=== PATIENT | male | born 1950 | race Hispanic/Latino ===

== ENCOUNTER 2017-09-19 10:12 | Inpatient (IN) | payer MEDICARE, MEDICAID ==
[2016-12-09 21:31] VITALS: BMI 33.3
[2017-09-19] MEDS ORDERED: HEPARIN-NS 5,000 UNITS/500 ML 5,000 UNIT/500 ML BAG IV ONE (12:13)
[2017-09-19] MEDS ORDERED: Lidocaine 1% Inj (20ml) ONE (12:13)
[2017-09-19] MEDS ORDERED: Propofol 10 mg/ml Inj (20 ML) ONE ×2 (12:20→15:22)
[2017-09-19] MEDS ORDERED: Nitroglycerin 50mg in D5W 50 MG/250 ML BOTTLE IV ONE (14:52)
[2017-09-19] MEDS ORDERED: Midazolam 2 MG/2 ML VIAL ONE (15:12)
[2017-09-19] MEDS ORDERED: ceFAZolin IV 2 gm in Dextrose 2 GM/50 ML BAG IVPB ONE (15:35)
[2017-09-19] MEDS ORDERED: Protamine 50mg/5mL Inj IV ONE (17:49)
[2017-09-19] MEDS ORDERED: Lactated Ringer's 1,000 ML IV PRN (18:27)
[2017-09-19] MEDS ORDERED: Sodium Chloride 0.9% 500 ML IV SCH (18:30)
[2017-09-19] MEDS: HYDROmorphone 0.5 mg/0.5 ml ISec IVP PRN ×3 (18:46→20:20)
[2017-09-19] MEDS ORDERED: HYDROmorphone 0.5 mg/0.5 ml ISec ONE (18:47)
[2017-09-19] MEDS: Lactated Ringer's 1,000 ML IV SCH (21:30)
[2017-09-19] MEDS ORDERED: ceFAZolin IV 1 gm in Dextrose 1 GM/50 ML BAG IVPB SCH (23:40)
[2017-09-20] MEDS: Oxycodone/Acetaminophen 5/325 mg Tab PO PRN ×3 (01:20→20:49)
[2017-09-20] MEDS: ceFAZolin 1 GM in Sodium Chloride 0.9% 100 ML IVPB SCH ×2 (01:30→10:10)
[2017-09-20 06:22] LABS: BASO # 0.1 K/uL (0.0-0.2); BASO % 0.5 % (0.0-2.0); EOS % 0.2 % (0.0-4.0); LYMPH # 1.4 K/uL (1.0-4.3); LYMPH % 12.7 % (20.0-40.0); MEAN CELL VOLUME 87.9 fL (80.0-94.0); MEAN CORPUSCULAR HEMOGLOBIN 30.6 pg (27.0-31.0); MEAN CORPUSCULAR HGB CONC 34.8 g/dL (33.0-37.0); MEAN PLATELET VOLUME 10.1 fL (7.2-11.7); MONO % 9.2 % (0.0-10.0); NEUT # 8.8 K/uL (1.8-7.0); NEUT % 77.4 % (50.0-75.0); RBC 4.22 Mil/uL (4.40-5.90); RED CELL DISTRIBUTION WIDTH 13.1 % (11.5-14.5); WHITE BLOOD COUNT 11.3 K/uL (4.8-10.8)
--- NOTE | 2017-09-20 06:27 | OP ---
PROCEDURE DATE: 09/19/2017. PREOPERATIVE DIAGNOSIS: A 90% right carotid stenosis. POSTOPERATIVE DIAGNOSIS: A 90% right carotid stenosis. PROCEDURE: Right carotid endarterectomy. SURGEON: Eric Stevenson MD VOLLEYBALL COMMENTATOR: Lam Ash MD TYPE OF ANESTHESIA: General endotracheal. ESTIMATED BLOOD LOSS: 100 mL. POSTOPERATIVE CONDITION: Stable. INDICATIONS FOR SURGERY: This is A 67-year-old male who presents with a history of bilateral carotid stenosis. He has 90% stenosis on the right and 75% on the left. He will now undergo staged endarterectomy with today being more severe, right side being repaired. GROSS FINDINGS: The patient had a low carotid bifurcation, making the dissection somewhat less difficult. There was bleeding from the parotid gland during the case resulting in the removal of a portion of parotid gland to control the bleeding. There were also lymph nodes in the area of the carotid, which had to be removed in order to facilitate exposure. DESCRIPTION OF PROCEDURE: The patient was taken to the operating room, general anesthesia was administered, and the right neck was prepped and draped. A standard neck exposure incision was made along the anterior border of sternocleidomastoid muscle. Through careful dissection, the carotid artery was identified and looped with umbilical tape. Multiple venous and arterial branches were ligated between clamps using silk ties. A portion of the carotid gland was resected to control bleeding. There were also several lymph nodes. The area of the carotid was removed to facilitate exposure. Through careful dissection, the common carotid, external carotid, and internal carotid arteries were carefully dissected free and looped with either umbilical tape or a vessel loop. The inferior thyroid artery was looped with silk. Heparin was administered. Clamps were placed first on the internal carotid and then on the remaining vessels and the common carotid artery was opened using arteriotomy and passes on to the internal carotid. Proximally, the arteriotomy was made on to a nondiseased common carotid artery. A 2 mm [place] shunt was shot in first into the internal carotid and then into common carotid and it was placed successfully. Total clamp time was 4 minutes. Next, using the freer dissector, I dissected the carotid plaque. I dissected also the common carotid bulb into the internal carotid artery. Using Pott Scissors, a nice cut was made in the common carotid intima as a proximal endpoint. Distal endpoint was first removed using a freer dissector and then tacking sutures of 7-0 Prolene were paced. The common carotid bulb with an open internal carotid was flushed with copious amounts of saline solution and any remaining "floaters" were removed. After a good and clean and smooth intima left, a Hemashield patch was fashioned and sutured in place with a running 6-0 Prolene suture. The shunt was then removed and clamps were replaced and the suturing of the patch was finished within 1 to 2 minutes. The clamps were then released, first the external carotid, then the common and then after approximately 10 seconds the internal carotid. Couple of bleeders were controlled using 6-0 Prolene. There was some oozing left which was controlled with Surgicel. The neck wound was irrigated with copious amounts of saline solution. A tissue flap closure was performed with multiple layers of Monocryl, subcuticular Monocryl, skin clips and Steri-strips. A [place] drain was left near the carotid artery and brought out through an inferior stab wound. The patient tolerated the procedure well and returned to recovery room in stable condition. He then awoke neurologically intact. Eric Stevenson MD MTDNoe
[2017-09-20 06:38] LABS: HEMOGLOBIN 12.9 g/dL (12.0-18.0)
[2017-09-20 07:12] LABS: BLOOD UREA NITROGEN 27 mg/dL (9-20); GFR AFRICAN-AMERICAN > 60; GFR NON-AFRICAN AMERICAN > 60
[2017-09-20 07:13] LABS: ALB/GLOB RATIO 1.2 (1.0-2.1); ALBUMIN 3.2 g/dL (3.5-5.0); ALT/SGPT 26 U/L (21-72); AST/SGOT 19 U/L (17-59); CALCIUM 7.7 mg/dl (8.6-10.4)
[2017-09-20] MEDS ORDERED: niCARdipine IV 25 MG in Sodium Chloride 0.9% 240 ML IV SCH (09:00)
[2017-09-20] MEDS: Aspirin 325 mg EC Tablets PO SCH (10:44)
[2017-09-20] MEDS: Lactated Ringer's 1,000 ML IV SCH (10:46)
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
[2017-09-21] MEDS: Aspirin 325 mg EC Tablets PO SCH (09:59)
[2017-09-21 12:18] LABS: BASO % 0.2 % (0.0-2.0); EOS % 0.3 % (0.0-4.0); HEMOGLOBIN 13.3 g/dL (12.0-18.0); LYMPH # 0.9 K/uL (1.0-4.3); LYMPH % 8.6 % (20.0-40.0); MEAN CELL VOLUME 87.3 fL (80.0-94.0); MEAN CORPUSCULAR HEMOGLOBIN 30.4 pg (27.0-31.0); MEAN CORPUSCULAR HGB CONC 34.8 g/dL (33.0-37.0); MONO # 0.8 K/uL (0.0-0.8); NEUT # 8.7 K/uL (1.8-7.0); NEUT % 82.9 % (50.0-75.0); PLATELET COUNT 131 K/uL (130-400); RBC 4.38 Mil/uL (4.40-5.90); RED CELL DISTRIBUTION WIDTH 13.3 % (11.5-14.5); WHITE BLOOD COUNT 10.5 K/uL (4.8-10.8)
[2017-09-21 12:33] LABS: ALB/GLOB RATIO 1.2 (1.0-2.1); ALBUMIN 3.7 g/dL (3.5-5.0); ALT/SGPT 23 U/L (21-72); AST/SGOT 22 U/L (17-59); BLOOD UREA NITROGEN 26 mg/dL (9-20); CALCIUM 8.7 mg/dl (8.6-10.4); GFR AFRICAN-AMERICAN > 60; GFR NON-AFRICAN AMERICAN > 60
[2017-09-21 12:53] LABS: BANDS 1 % (0-2); EOSINOPHIL 1 % (0-4); LYMPHOCYTE 9 % (20-40); MONOCYTE 7 % (0-10); NEUTROPHIL 82 % (50-75); PLATELET ESTIMATE NORMAL (NORMAL); TOTAL CELLS COUNTED 100
[2017-09-21] MEDS: (Novolog) Insulin Aspart, Recombinant 100 u/ml 10 ml vial SC SCH ×2 (17:29→21:28)
[2017-09-21] MEDS: Oxycodone/Acetaminophen 5/325 mg Tab PO PRN (17:30)
[2017-09-21] MEDS ORDERED: Bisacodyl 5mg EC Tab PO ONE (21:17)
[2017-09-22] MEDS: (Novolog) Insulin Aspart, Recombinant 100 u/ml 10 ml vial SC SCH ×4 (07:29→22:14)
[2017-09-22 09:00] LABS: ABG ALLEN TEST PO; ARTERIAL BLOOD GAS HCO3 25.6 mmol/L (21-28); ARTERIAL BLOOD GAS HEMOGLOBIN 12.8 g/dL (11.7-17.4); ARTERIAL BLOOD GAS O2 SAT 96.6 % (95-98); ARTERIAL BLOOD GAS PCO2 32 mm/Hg (35-45); ARTERIAL BLOOD GAS PH 7.48 (7.35-7.45); ARTERIAL BLOOD GAS PO2 82 mm/Hg (80-100); ARTERIAL BLOOD GAS TCO2 24.8 mmol/L (22-28)
[2017-09-22 09:05] LABS: CK-MB 0.82 ng/mL (0.0-3.38); TROPONIN I 0.075 ng/mL (0.00-0.120)
[2017-09-22 09:14] LABS: HEMOGLOBIN 12.9 g/dL (12.0-18.0); MEAN CELL VOLUME 86.1 fL (80.0-94.0); MEAN CORPUSCULAR HEMOGLOBIN 30.8 pg (27.0-31.0); MEAN CORPUSCULAR HGB CONC 35.8 g/dL (33.0-37.0); MEAN PLATELET VOLUME 9.7 fL (7.2-11.7); RBC 4.2 Mil/uL (4.40-5.90); RED CELL DISTRIBUTION WIDTH 13.2 % (11.5-14.5); WHITE BLOOD COUNT 9.9 K/uL (4.8-10.8)
[2017-09-22 09:38] LABS: ALBUMIN 3.7 g/dL (3.5-5.0); ALT/SGPT 19 U/L (21-72); AST/SGOT 26 U/L (17-59); BLOOD UREA NITROGEN 17 mg/dL (9-20); CALCIUM 8.8 mg/dl (8.6-10.4); GFR AFRICAN-AMERICAN > 60; GFR NON-AFRICAN AMERICAN > 60
[2017-09-22] MEDS: POLYETHYLENE GLYCOL 3350 17 GM/Dose PACKET PO SCH (10:17)
[2017-09-22] MEDS: Aspirin 325 mg EC Tablets PO SCH (10:17)
[2017-09-22] MEDS ORDERED: Iodixanol 320 MG/ML 100 ML BOTTLE IV ONE (11:53)
--- NOTE | 2017-09-22 13:12 | CT ---
PROCEDURE: CT Chest with contrast (Pulmonary Angiogram) HISTORY: Hypoxia,tachy,r/o PE COMPARISON: None available. TECHNIQUE: Axial computed tomography images were obtained of the chest in the pulmonary arterial phase of enhancement. Coronal and sagittal reformatted images were created and reviewed. Intravenous contrast dose: 100 mL Visipaque 320 Radiation dose: Total exam DLP = 580.1 mGy-cm. This CT exam was performed using one or more of the following dose reduction techniques: Automated exposure control, adjustment of the mA and/or kV according to patient size, and/or use of iterative reconstruction technique. FINDINGS: PULMONARY ARTERIES: Suboptimal opacification. No central pulmonary embolism. AORTA: No acute findings. Heavy calcific atherosclerosis. No thoracic aortic aneurysm. LUNGS: Pulmonary vascular congestion/edema. No nodule, mass or pulmonary consolidation. PLEURAL SPACES: Small bilateral pleural effusions. No pneumothorax. HEART: Unremarkable. No cardiomegaly. No significant pericardial effusion. LYMPH NODES: Scattered enlarged lymph nodes. Preaortic node measuring 1.4 cm. Precarinal node measuring 1.3 cm. BONES, CHEST WALL: Old posterior 11th left rib fracture with partial nonunion. No destructive lesion OTHER FINDINGS: Prior cholecystectomy. Fatty atrophy of the pancreas. Large left renal cyst IMPRESSION: Limited CT pulmonary angiogram. No central pulmonary embolus. Pulmonary vascular congestion/edema with small bilateral pleural effusions. Nonspecific mediastinal lymphadenopathy with largest node measuring up to 1.4 cm.
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
[2017-09-22] MEDS: Albuterol-Ipratrop 3 mg / 0.5 (3 ml) UD INH SCH ×2 (15:45→20:47)
--- NOTE | 2017-09-22 19:02 | PN ---
DATE: 09/22/2017 SUBJECTIVE: The patient had a hypoxic event this morning where his O2 went down to low 80s on 2 L of oxygen. Respiratory was called, he had chest PT, and his oxygen was turned up and he improved to an O2 saturation of currently 98. Because of the acuity of the event, he underwent a CT angiogram of lungs that showed no evidence of pulmonary embolism. The lungs were noted to be diminished but no infiltrates were seen. There were only small pleural effusions. Patient is resting comfortably with a Ventimask currently. O2 saturation is 98 on 4 L of Ventimask. His right neck incision is clean and dry. Lung exam revealed decreased lung sounds at the bases, otherwise, clear. The abdomen is somewhat distended. Bowel sounds present. IMPRESSION: Patient has been constipated and has a distended abdomen, this may have contributed to his hypoxia. He is recently given a Dulcolax suppository for bowel movement, he states he feels better. There was no evidence of pneumonia on CT scan. He will be seen by Dr. Najera in Pulmonary, undergo daily respiratory treatments as his pulmonary status is the only thing keeping him in the hospital at this point. Once his pulmonary status improves and he has adequate O2 saturation on room air, he will be discharged. Eric Stevenson MD
[2017-09-23] MEDS: Albuterol-Ipratrop 3 mg / 0.5 (3 ml) UD INH SCH ×6 (00:30→19:44)
[2017-09-23 00:36] VITALS: RESP 20
[2017-09-23] MEDS: (Novolog) Insulin Aspart, Recombinant 100 u/ml 10 ml vial SC SCH ×4 (08:03→21:28)
[2017-09-23] MEDS: POLYETHYLENE GLYCOL 3350 17 GM/Dose PACKET PO SCH ×2 (10:00→10:09)
[2017-09-23] MEDS: Aspirin 325 mg EC Tablets PO SCH (10:01)
--- NOTE | 2017-09-23 10:59 | CP.PCM.PN ---
<Jake Wong E - Last Filed: 09/23/17 18:51> Subjective - Date & Time of Evaluation Date of Evaluation: 09/23/17 Time of Evaluation: 09:20 - Subjective Subjective: Medicine progress note ( Dr. Aldrich's service) Patient was seen and examined at bedside. Patient states that he is doing well and has no complaints. Patient states that he is breathing better and he was able to sleep well with the CiPAP machine overnight. Patient denies chest pain, SOB, palpitations, nausea, vomiting, fever, chills, headache, blurry vision, and dizziness. Objective - Vital Signs/Intake and Output Vital Signs (last 24 hours): Temp Pulse Resp BP Pulse Ox 97.4 F L 60 20 160/72 H 93 L 09/23/17 07:35 09/23/17 07:54 09/23/17 07:35 09/23/17 10:00 09/23/17 07:35 - Medications Medications: Current Medications Albuterol/Ipratropium (Duoneb 3 Mg/0.5 Mg (3 Ml) Ud) 3 ml INH RQ4 [facility] Last Admin: 09/23/17 07:12 Dose: 3 ml Amlodipine Besylate (Norvasc) 10 mg PO DAILY [facility] Last Admin: 09/23/17 10:01 Dose: 10 mg Aspirin (Ecotrin) 325 mg PO DAILY [facility] Last Admin: 09/23/17 10:01 Dose: 325 mg Docusate Sodium (Colace) 100 mg PO BID [facility] Last Admin: 09/23/17 10:01 Dose: 100 mg Famotidine (Pepcid) 20 mg PO DAILY [facility] Last Admin: 09/23/17 10:01 Dose: 20 mg Furosemide (Lasix) 40 mg IVP DAILY [facility] Last Admin: 09/23/17 10:00 Dose: 40 mg Hydralazine HCl (Apresoline) 10 mg PO QID [facility] Last Admin: 09/22/17 22:05 Dose: 10 mg Hydromorphone HCl (Dilaudid) 1 mg IVP Q4H PRN PRN Reason: pain 8-10 Nicardipine HCl 25 mg/ Sodium (Chloride) 250 mls @ 50 mls/hr IV .Q5H [facility]; 5 MG/ HR PRN Reason: Protocol Last Admin: 09/20/17 15:02 Dose: Not Given Insulin Aspart (Novolog) 0 unit SC ACHS [facility] PRN Reason: Protocol Last Admin: 09/23/17 08:03 Dose: Not Given Losartan Potassium (Cozaar) 100 mg PO DAILY [facility] Last Admin: 09/23/17 10:01 Dose: 100 mg Metoprolol Tartrate (Lopressor) 50 mg PO DAILY [facility] Last Admin: 09/23/17 10:01 Dose: 50 mg Polyethylene Glycol (Miralax) 17 gm PO DAILY [facility] Last Admin: 09/23/17 10:09 Dose: Not Given - Labs Labs: 09/22/17 09:08 09/22/17 09:08 - Constitutional Appears: Well, No Acute Distress - Head Exam Head Exam: ATRAUMATIC, NORMAL INSPECTION Additional comments: S/p right carotid endarterectomy on 09/19/17, POD #4, Still with dressing - Eye Exam Eye Exam: EOMI, Normal appearance - ENT Exam ENT Exam: Mucous Membranes Moist - Respiratory Exam Respiratory Exam: Clear to Ausculation Bilateral, NORMAL BREATHING PATTERN. absent: Rhonchi, Wheezes, Respiratory Distress - Cardiovascular Exam Cardiovascular Exam: REGULAR RHYTHM, +S1, +S2 - GI/Abdominal Exam GI & Abdominal Exam: Soft, Normal Bowel Sounds. absent: Guarding, Rigid, Tenderness - Extremities Exam Extremities Exam: Normal Inspection. absent: Calf Tenderness, Pedal Edema - Neurological Exam Neurological Exam: Alert, Awake, Oriented x3 - Psychiatric Exam Psychiatric exam: Normal Affect - Skin Skin Exam: Normal Color Assessment and Plan (1) Status post carotid endarterectomy Assessment & Plan: Dr. Stevenson on board Right artery endarterectomy POD #4 * Management as per Dr. Stevenson's recommendation Status: Acute (2) Atrial fibrillation Assessment & Plan: Visual And Stock Associate, Dr. Painter consulted--> Help appreciated * Management as per recommendation Status: Acute (3) Hypertension Assessment & Plan: Cozaar 50mg Po daily HCTZ 25mg PO daily Lopressor 50mg PO BID Hydralazine 10mg PO QID PRN ( SBP>160mmhg) Status: Acute (4) Pulmonary congestion Assessment & Plan: Time Stamp Assembler, Dr. Najera on board Chest CT: Pulmonary vascular congestion/edema with small bilateral pleural effusions Medication: Lasix 40mg PO daily Status: Acute (5) Constipation Assessment & Plan: Improving Docusate 100mg PO BID Miralax 17gm PO daily Status: Acute (6) Diabetes mellitus Assessment & Plan: f/u hemoglobin A1C Accuchecks Novolog 70/30 34 units with breakfast Novolog 70/30 15 units with dinner ISS- low dose Hypoglycemia protocol Status: Acute (7) Prophylactic measure Assessment & Plan: GI: Pepcid 20mg PO daily DVT: Anticoagulation held as patient is s/p Right artery endarterectomy POD #4, ambulates All plans and management discussed with Dr. Aldrich Status: Acute <Herson Aldrich - Last Filed: 10/07/17 14:57> Objective - Vital Signs/Intake and Output Vital Signs (last 24 hours): Temp Pulse Resp BP Pulse Ox 98.1 F 67 20 152/72 H 95 09/24/17 08:36 09/24/17 08:36 09/24/17 08:36 09/24/17 08:36 09/24/17 08:36 - Labs Labs: 09/22/17 09:08 09/22/17 09:08 Attending/Attestation - Attestation I have personally seen and examined this patient.: Yes I have fully participated in the care of the patient.: Yes I have reviewed all pertinent clinical information, including history, physical exam and plan: Yes Notes (Text): (1) Status post carotid endarterectomy (2) Atrial fibrillation (3) Hypertension (4) Pulmonary congestion Note: Patient surgical decisionmaking and post surgical management by Dr. Stevenson. Patient care limited to medical issues only post op. .
[2017-09-23] MEDS ORDERED: Dextrose 50% SYRINGE Inj (50 ml) IVP PRN (18:48)
[2017-09-23] MEDS ORDERED: Glucagon Recombinant 1 mg Inj IM PRN (18:48)
[2017-09-23] MEDS ORDERED: (Novolog Mix 70/30) Insulin Aspart/Insulin Aspar 100 units/ml SC SCH (22:00)
--- NOTE | 2017-09-23 22:55 | CARD ---
APPROVED REPORT EKG Measurement Heart [id number] <Conclusion> Normal sinus rhythm Rightward axis ST & T wave abnormality, consider inferior ischemia ST & T wave abnormality, consider anterolateral ischemia Abnormal ECG
[2017-09-24] MEDS: Albuterol-Ipratrop 3 mg / 0.5 (3 ml) UD INH SCH ×3 (00:50→07:44)
--- NOTE | 2017-09-24 07:17 | CON ---
SUBJECTIVE: The patient is a 67-year-old male with history of coronary artery disease admitted to the hospital with chief complaint of status post endarterectomy. The patient postop became short of breath, he received pulse oximeter and pulmonary embolism with bilateral pleural effusion, coronary calcification. The patient is bypass surgery. The patient is ex-smoker, stopped several years ago. The patient is retired. PHYSICAL EXAMINATION: GENERAL: The patient is awake and alert. VITAL SIGNS: Temperature 98, pulse is 90 and regular. Today's blood pressure 130/80. HEENT: Within normal limits. NECK: Supple. CHEST: Symmetrical. HEART: Regular. ABDOMEN: Soft and obese. EXTREMITIES: No edema. IMPRESSION: The patient is status post endarterectomy, congestive heart failure, atrial fibrillation. The patient will receive oxygen and BiPAP therapy as needed. Diuresis. Cardiac evaluation. Hannah Najrea MD
[2017-09-24] MEDS: (Novolog) Insulin Aspart, Recombinant 100 u/ml 10 ml vial SC SCH (07:21)
[2017-09-24] MEDS ORDERED: (Novolog Mix 70/30) Insulin Aspart/Insulin Aspar 100 units/ml SC SCH ×2 (07:30→16:30)
[2017-09-24 08:37] VITALS: BP 152/72; PULSE 67; TEMP 98.1; O2SAT 95
--- NOTE | 2017-09-24 10:45 | CP.PCM.PN ---
Subjective - Date & Time of Evaluation Date of Evaluation: 09/24/17 Time of Evaluation: 07:15 - Subjective Subjective: Medicine progress note ( Dr. Karl Ibarra) Patient was seen and examined at bedside. Patient reports that he is doing well and has no complaints. Patient denies chest pain, SOB, palpitations, dizziness. Patient states that he is tolerating diet and ambulating without difficulty. Objective - Vital Signs/Intake and Output Vital Signs (last 24 hours): Temp Pulse Resp BP Pulse Ox 98.1 F 67 20 152/72 H 95 09/24/17 08:36 09/24/17 08:36 09/24/17 08:36 09/24/17 08:36 09/24/17 08:36 Intake and Output: 09/24/17 09/24/17 06:59 18:59 Intake Total 100 Balance 100 - Labs Labs: 09/22/17 09:08 09/22/17 09:08 - Constitutional Appears: Well, No Acute Distress - Head Exam Head Exam: ATRAUMATIC, NORMAL INSPECTION - Eye Exam Eye Exam: EOMI, Normal appearance - ENT Exam ENT Exam: Mucous Membranes Moist - Neck Exam Additional comments: S/p Right ICA endarterectomy (09/20/17) [place] in places, no bleeding Dressing removed by Dr. Stevenson - Respiratory Exam Respiratory Exam: Clear to Ausculation Bilateral, NORMAL BREATHING PATTERN. absent: Rhonchi, Wheezes, Respiratory Distress - Cardiovascular Exam Cardiovascular Exam: REGULAR RHYTHM, +S1, +S2. absent: Murmur - GI/Abdominal Exam GI & Abdominal Exam: Soft, Normal Bowel Sounds. absent: Guarding, Rigid, Tenderness - Extremities Exam Extremities Exam: Normal Inspection. absent: Calf Tenderness, Pedal Edema - Neurological Exam Neurological Exam: Alert, Awake, Oriented x3 - Psychiatric Exam Psychiatric exam: Normal Affect, Normal Mood - Skin Skin Exam: Normal Color Assessment and Plan (1) Status post carotid endarterectomy Assessment & Plan: Dr. Stevenson on board Right artery endarterectomy POD #5 * Management as per Dr. Stevenson's recommendation Status: Acute (2) Atrial fibrillation Assessment & Plan: Boilermaker'S Assistant, Dr. Painter consulted--> Help appreciated * Management as per recommendation Status: Acute (3) Hypertension Assessment & Plan: Cozaar 50mg Po daily HCTZ 25mg PO daily Lopressor 50mg PO BID Hydralazine 10mg PO QID PRN ( SBP>160mmhg) Status: Acute (4) Pulmonary congestion Assessment & Plan: Process Trainer, Dr. Najera on board Chest CT: Pulmonary vascular congestion/edema with small bilateral pleural effusions Medication: Lasix 40mg PO daily Status: Acute (5) Constipation Assessment & Plan: Improving Docusate 100mg PO BID Miralax 17gm PO daily Status: Acute (6) Diabetes mellitus Assessment & Plan: f/u hemoglobin A1C Accuchecks Novolog 70/30 34 units with breakfast Novolog 70/30 15 units with dinner ISS- low dose Hypoglycemia protocol Status: Acute (7) Prophylactic measure Assessment & Plan: GI: Pepcid 20mg PO daily DVT: Anticoagulation held as patient is s/p Right artery endarterectomy POD #5, ambulates Disposition: Patient was discharge by primary, Dr. Stevenson today, 09/24/17 and patient left before 10:35am; therefore, medicine attending was not able to see patient before he left. Patient's home medications were revised with him at bedside yesterday, 09/23/17, as he was with all of his home medications. All plans and management discussed with Dr. Karl Ibarra Status: Acute
--- NOTE | 2017-09-25 06:35 | PN ---
DATE: 09/24/2017. SUBJECTIVE: The patient is improving, shortness of breath is less, discharged today. Follow up with Cardiology as outpatient. Hannah Najera MD
--- NOTE | 2017-09-26 18:06 | CARD ---
APPROVED REPORT EKG Measurement Heart [id number] <Conclusion> Atrial fibrillation ST & T wave abnormality, consider inferolateral ischemia Abnormal ECG
== END 2017-09-24 09:30 | disposition home or self-care (01) | DRG 39 ==
LOC: C.9S 10:12 → C.9I 20:35 → C.5S 09-20 22:46
PROVIDERS: ADMIT Surgery; ATTEND Surgery
PROC: 07B10ZZ Excision of Right Neck Lymphatic, Open Approach (ICD-10-PCS; 2017-09-19)
PROC: 03CK0ZZ Extirpation of Matter from Right Internal Carotid Artery, Open Approach (ICD-10-PCS; principal; 2017-09-19 12:00)
DX: I65.23 Occlusion and stenosis of bilateral carotid arteries (principal); R09.02 Hypoxemia; R59.0 Localized enlarged lymph nodes; I50.9 Heart failure, unspecified; I11.0 Hypertensive heart disease with heart failure; I48.91 Unspecified atrial fibrillation; J45.909 Unspecified asthma, uncomplicated; I25.10 Atherosclerotic heart disease of native coronary artery without angina pectoris; E11.9 Type 2 diabetes mellitus without complications; K59.00 Constipation, unspecified; Z79.4 Long term (current) use of insulin; Z87.891 Personal history of nicotine dependence; Z90.49 Acquired absence of other specified parts of digestive tract; Z95.1 Presence of aortocoronary bypass graft; Z95.5 Presence of coronary angioplasty implant and graft